=== PATIENT | female | born 1955 | race Caucasian/White ===

== ENCOUNTER 2020-10-18 01:52 | Day surgery (SDC) | payer MEDICARE, SELFPAY ==
[2020-10-17 10:17] VITALS: BMI 30.1
--- NOTE | 2020-10-17 14:33 | WPDANESEPPF ---
Anes - Initial Pre Proc Eval Procedure: Operation Date: 10/18/20 12:45 Proposed Procedures p Left Ureteroscopy With Left Stent Placement - Jerry Mcmillan MD Date/Time: 10/17/20 14:33 Surgeon: Jerry Mcmillan MD Pre Op Diagnosis: Left Ureteral Stone Patient Data Age: 65 Gender: F Height: 1.52 m Weight: 70 kg Allergies Allergy/AdvReac Type Severity Reaction Status Date / Time iohexol Allergy Severe Hives Verified 10/18/20 11:16 [From contrast - CT, X-RAY] meperidine [From Demerol] AdvReac Severe NAUSEA/VOMI Verified 10/18/20 11:16 TING midazolam AdvReac Severe Nausea and Verified 10/18/20 11:16 Vomiting Home Medications Medication Instructions Recorded Confirmed Type estradiol 1 patch TOPICAL 2XW 10/17/20 10/17/20 History loratadine [Claritin] 10 mg PO DAILY 10/17/20 10/17/20 History lorazepam 0.5 mg PO TID PRN 10/17/20 10/17/20 History nitrofurantoin monohyd/m-cryst 100 mg PO BID 10/17/20 10/17/20 History Patient hx anesthesia problems: post op nausea/vomiting Family hx anesthesia problems: none PMFSH Past Medical History Medical History (Updated 10/18/20 @ 04:58 by Jerry Mcmillan MD) Anxiety Arthritis Chronic GERD Hypercholesterolemia Multiple sclerosis PONV (postoperative nausea and vomiting) Social History Social History Smoking status: Never smoker Alcohol intake: never Substance use: never Living arrangements: with family Additional living arrangements comments: Spiritual care concerns: No Anes - Eval Final PreProcedure Day of Procedure 10/17/20 14:33 Patient weight: obese Heart: regular rate and rhythm Lungs: clear to auscultation and normal air movement Airway: Mallampati scale class II Neurological: alert and oriented Last oral intake: >/= 8 hours ASA classification: III Emergent: no Anesthetic plan: proceed Anesthesia type and monitoring: general GIVS and LMA Informed Consent: The patient's anesthetic plan and its attendant risks and benefits were discussed with the patient/family/POA. Questions were solicited and answers provided to the satisfaction of the patient/family/POA.
[2020-10-18] VITALS (8 sets, daily range): BP systolic 96–129; BP diastolic 49–65; PULSE 49–65; RESP 12–20; TEMP 36.7–36.9; O2SAT 99–100
--- NOTE | ~2020-10-18 | XR_ITS ---
EXAMINATION: XR retrograde pyelo w/stent LT EXAM DATE: 10/18/2020 13:00 INDICATION: Left ureteral stent placement. Retrograde pyelogram. TECHNIQUE: Fluoroscopy used during XR retrograde pyelo w/stent LT performed by Dr. Jerry Mcmillan MD. The DAP for this procedure was 118 radcm2 FINDINGS: Left ureter was cannulated and injected. No evidence of mid to distal ureteral stricture o n the image available. A left double-J ureteral stent was placed. Correlate with procedure note. IMPRESSION: Fluoroscopy used during XR retrograde pyelo w/stent LT. Reviewed, dictated and finalized at location A. [facility]
--- NOTE | 2020-10-18 04:56 | PM.IMHP ---
H&P: HPI History of Present Illness Date/Time: 10/18/20 04:56 Chief Complaint: calc of ureter Narrative: Ramya Gilmore is a 65 year old female 5mm left distal stone Review of Systems Review of Systems: All systems reviewed & are unremarkable except as noted in HPI and below PMFSH Past Medical History Medical History (Updated 10/18/20 @ 04:58 by Jerry Mcmillan MD) Anxiety Arthritis Chronic GERD Hypercholesterolemia Multiple sclerosis PONV (postoperative nausea and vomiting) Social History Social History Smoking status: Never smoker Alcohol intake: never Substance use: never Living arrangements: with family Additional living arrangements comments: Spiritual care concerns: No Meds Home Medications and Allergies Home Medications Medication Instructions Recorded Confirmed Type estradiol 1 patch TOPICAL 2XW 10/17/20 10/17/20 History loratadine [Claritin] 10 mg PO DAILY 10/17/20 10/17/20 History lorazepam 0.5 mg PO TID PRN 10/17/20 10/17/20 History nitrofurantoin monohyd/m-cryst 100 mg PO BID 10/17/20 10/17/20 History Allergies Allergy/AdvReac Type Severity Reaction Status Date / Time iohexol Allergy Unknown Hives Verified 10/17/20 10:12 [From contrast - CT, X-RAY] meperidine [From Demerol] AdvReac Unknown NAUSEA/VOMI Verified 10/17/20 10:12 TING Exam Const: General: cooperative HENMT: Head: normal to inspection Resp: Effort & Inspection: normal respiratory effort and able to speak in complete sentences Skin: General skin exam: normal color Assessment and Plan Assessment and plan (1) Calculus of distal left ureter: Code(s): N20.1 - Calculus of ureter Status: Acute Assessment and Plan: Left ureteroscpoy, stone extraction, possible stent, possible use of holmium laser
--- NOTE | 2020-10-18 04:59 | WPDHPUPDATE1 ---
History and Physical Update Update Date/Time: 10/18/20 04:59 History and Physical has been reviewed, including an updated exam of the patient. There are NO changes in the patient's condition. Risks, benefits, and alternatives have been discussed and questions answered. Patient agrees to proceed with procedure.
[2020-10-18] MEDS: LACTATED RINGERS 1,000 ML 30 ML IV CONT (11:22)
[2020-10-18] MEDS: ceFAZolin 2 GM/D5W 50 ML 2 GM/50 ML BAG IVPB (12:14)
--- NOTE | 2020-10-18 12:50 | PM.PROC ---
Procedure Note - Detailed Date of procedure: 10/18/20 Pre-op diagnosis: Left Ureteral Stone Post-op diagnosis: same Procedure performed: Cystoscopy, left retrograde pyelogram, left ureteroscopy, holmium laser lithotripsy, stone extraction, stent placement Description of procedure: She was correctly identified and informed consent obtained. She is brought the operating room. She was given general anesthesia. She was prepped and draped in a sterile fashion. Time-out performed I performed cystoscopy. The bladder was examined. There is no abnormalities of the bladder. Stone could be seen on quality control expert radiograph. I did a gentle retrograde pyelogram to outline the stone. I placed a guidewire to the kidney. I dilated the ureter with the 810 dilator. I performed ureteroscopy. The stone was encountered. It was fragmented the holmium laser. Fragments removed. I re-examined the ureter. There is no other fragments. I elected to leave a stent. I placed a 4.8 very willing stent. Proximal coil in the kidney. Distal coil in the bladder. The bladder was drained. She was awakened and transferred to PACU in stable condition. Implants: Very blank stent Anesthesia: GLMA Surgeon: Jerry Mcmillan MD Estimated blood loss (mL): 0 Drains: No Packing: No Pathology: yes Complications: No immediate complications Condition: stable
[2020-10-18] MEDS: LIDOCAINE HCL 2% GEL UROJET 10 ML PKG MUCOUS MEM (12:51)
[2020-10-18] MEDS: ONDANSETRON INJ 4 MG/2 ML VIAL IV PUSH (13:57)
== END 2020-10-18 14:40 | disposition home or self-care (01) ==
PROVIDERS: PCP Family Medicine; Visit Provider Urology
PROC: (CPT 52352; principal; 2020-10-18 12:45)
PROC: (CPT 52356; 2020-10-18 12:45)
DX: N20.1 Calculus of ureter (principal); F41.9 Anxiety disorder, unspecified; M19.90 Unspecified osteoarthritis, unspecified site; K21.9 Gastro-esophageal reflux disease without esophagitis; E78.00 Pure hypercholesterolemia, unspecified; G35 Multiple sclerosis; E66.9 Obesity, unspecified; Z68.30 Body mass index [BMI] 30.0-30.9, adult
CPT/HCPCS: 52356; 74420; 82365; 88300; A9270; C1769; C2617; J0690; J1100; J2405; J2704; J3010; J7120